=== PATIENT | female | born 1960 | race Caucasian/White ===

== ENCOUNTER → 2019-06-22 | Outpatient (CLI) | payer BC | LOC: MAMMO 12:57 | DX: Z12.31 Encounter for screening mammogram for malignant neoplasm of breast (principal) ==

== ENCOUNTER → 2020-07-06 | Outpatient (CLI) | payer BC | LOC: LAB 10:29 | DX: Z01.812 Encounter for preprocedural laboratory examination (principal); Z20.828 Contact with and (suspected) exposure to other viral communicable diseases ==

== ENCOUNTER → 2020-08-03 | Outpatient (CLI) | payer BC | LOC: LAB 08:58 | DX: Z01.812 Encounter for preprocedural laboratory examination (principal); Z20.822 Contact with and (suspected) exposure to COVID-19 ==

== ENCOUNTER → 2020-08-09 | Day surgery (SDC) | payer BC | END | disposition home or self-care (01) | LOC: MSO 08:03 | DX: H26.8 Other specified cataract (principal); E66.01 Morbid (severe) obesity due to excess calories; Z79.82 Long term (current) use of aspirin; Z79.890 Hormone replacement therapy; Z71.3 Dietary counseling and surveillance; Z88.5 Allergy status to narcotic agent | CPT/HCPCS: 00142; J0171; J2250; V2632 ==

== ENCOUNTER → 2020-09-06 | Day surgery (SDC) | payer BC | LOC: MSO 06:54 | DX: H26.8 Other specified cataract (principal); Z79.82 Long term (current) use of aspirin | CPT/HCPCS: 00142; J0171; J2250; J2405; V2632 ==

== ENCOUNTER → 2021-08-15 | Outpatient (CLI) | payer BC | LOC: MAMMO 08-07 14:30 | DX: Z12.31 Encounter for screening mammogram for malignant neoplasm of breast (principal) ==

== ENCOUNTER 2022-08-23 11:15 | Outpatient (RCR) | payer BC | END 2022-09-13 | disposition home or self-care (01) | LOC: PT | DX: M17.12 Unilateral primary osteoarthritis, left knee (principal) ==

== ENCOUNTER 2023-01-14 16:20 | Outpatient (RCR) | payer BC | END 2023-02-13 14:21 | disposition home or self-care (01) | LOC: PT 16:20 | DX: M17.11 Unilateral primary osteoarthritis, right knee (principal); Z96.651 Presence of right artificial knee joint ==

== ENCOUNTER → 2023-03-26 | Outpatient (CLI) | payer MEDICARE, BC | LOC: RAD 08:02 | DX: M25.561 Pain in right knee (principal); Z96.653 Presence of artificial knee joint, bilateral ==

== ENCOUNTER → 2023-07-22 | Outpatient (CLI) | payer MEDICARE, BC | LOC: MAMMO 08:56 | DX: Z12.31 Encounter for screening mammogram for malignant neoplasm of breast (principal) ==

== ENCOUNTER → 2024-03-24 | Outpatient (CLI) | payer MEDICARE, BC | LOC: RAD 08:49 | DX: M25.561 Pain in right knee (principal); M25.562 Pain in left knee; Z96.653 Presence of artificial knee joint, bilateral ==

== ENCOUNTER → 2024-07-27 | Outpatient (CLI) | payer MEDICARE, BC | LOC: MAMMO 14:52 | DX: Z13.820 Encounter for screening for osteoporosis (principal) ==